=== PATIENT | male | born 1985 | race Caucasian/White ===

== ENCOUNTER 2017-10-20 16:21 | Emergency (ER) | payer BC ==
[2017-10-20 16:26] VITALS: BP 133/88
[2017-10-20] MEDS ORDERED: KETOROLAC TROMETHAMINE 60 MG/2 ML SDV IM ONE (16:35)
[2017-10-20] MEDS ORDERED: LIDOCAINE 5% (700 MG) TRANSDERMAL ADH..PATCH TP ONE (16:35)
[2017-10-20 17:32] LABS: ABSOLUTE BASOPHILS # (AUTO) 0.1 10^3/uL (0.0-0.2); ABSOLUTE EOSINOPHILS # (AUTO) 0.2 10^3/uL (0.0-0.6); ABSOLUTE LYMPHOCYTES (AUTO) 2.6 10^3/uL (0.5-4.7); ABSOLUTE MONOCYTES (AUTO) 0.5 10^3/uL (0.1-1.4); ABSOLUTE NEUT (AUTO) 6.7 10^3/uL (1.7-8.2); BASOPHILS % (AUTO) 1.2 % (0-2); EOSINOPHILS % (AUTO) 1.5 % (0-6); HEMATOCRIT 45.8 % (37.9-51.0); LYMPHOCYTES % (AUTO) 25.7 % (13-45); MEAN CORPUSCULAR HGB CONC 34.9 g/dL (32.0-36.0); MEAN CORPUSCULAR VOLUME 89 fl (80-97); MONOCYTES % (AUTO) 5.4 % (3-13); PLATELET COUNT 255 10^3/uL (150-450); RED BLOOD COUNT 5.16 10^6/uL (4.35-5.55); RED CELL DISTRIBUTION WIDTH 13.2 % (11.5-14.0); SEGMENTED NEUTROPHILS % (AUTO) 66.2 % (42-78); TOTAL CELLS COUNTED % (AUTO) 100 %; WHITE BLOOD COUNT 10.1 10^3/uL (4.0-10.5)
[2017-10-20 18:02] LABS: APPEARANCE,URINE CLOUDY; BILIRUBIN,URINE NEGATIVE (NEGATIVE); COLOR,URINE AMBER; GLUCOSE, URINE NEGATIVE (NEGATIVE); KETONES,URINE NEGATIVE (NEGATIVE); LEUKOCYTE ESTERASE,URINE NEGATIVE (NEGATIVE); NITRITE,URINE NEGATIVE (NEGATIVE); PROTEIN,URINE 100 mg/dL (NEGATIVE); URINE SPECIFIC GRAVITY 1.026; UROBILINOGEN,URINE NEGATIVE mg/dL (<2.0)
[2017-10-20 18:20] LABS: ANION GAP 14 (5-19); BLOOD UREA NITROGEN 11 mg/dL (7-20); CALCIUM 9.4 mg/dL (8.4-10.2); CARBON DIOXIDE 24 mmol/L (22-30); CHLORIDE 103 mmol/L (98-107); GLUCOSE 109 mg/dL (75-110); POTASSIUM 3.9 mmol/L (3.6-5.0); SODIUM 140.5 mmol/L (137-145)
--- NOTE | 2017-10-20 18:21 | RADIOLOGY REPORT (SQ) ---
EXAM DESCRIPTION: CT LTD RENAL STONE PROTOCOL ON COMPLETED DATE/TIME: 10/20/2017 6:10 pm REASON FOR STUDY: right flank pain COMPARISON: None. TECHNIQUE: CT scan of the abdomen and pelvis performed without intravenous or oral contrast. Images reviewed with lung, soft tissue, and bone windows. Reconstructed coronal and sagittal MPR images revi ewed. All images stored on PACS. All CT scanners at this facility use dose modulation, iterative reconstruction, and/or weight based d osing when appropriate to reduce radiation dose to as low as reasonably achievable (ALARA). [facility]: Dose Right [facility]: CareDose [facility]: Dose Right [facility]: Teradose 4D [facility]: [employer] RADIATION DOSE: mGy. LIMITATIONS: None. FINDINGS: LOWER CHEST: No significant findings. No nodules or infiltrates. NON-CONTRASTED LIVER, SPLEEN, ADRENALS: Evaluation limited by lack of IV contrast. No identified sign ificant masses. PANCREAS: No masses. No peripancreatic inflammatory changes. GALLBLADDER: No identified stones by CT criteria. No inflammatory changes to suggest cholecystitis. RIGHT KIDNEY AND URETER: No suspicious masses. Assessment limited by lack of IV contrast. A 3.5 mm in diameter obstructing calculus is identified at the level of the uteropelvic junction. There is h ydronephrosis of the right kidney. LEFT KIDNEY AND URETER: No suspicious masses. Assessment limited by lack of IV contrast. No signifi cant calcifications. No hydronephrosis or hydroureter. AORTA AND RETROPERITONEUM: No aneurysm. No retroperitoneal masses or adenopathy. BOWEL AND PERITONEAL CAVITY: No obvious masses or inflammatory changes. No free fluid. APPENDIX: Normal. PELVIS, BLADDER, AND ABDOMINAL WALL:No abnormal masses. No free fluid. Bladder normal. BONES: No significant findings. OTHER: No other significant finding. IMPRESSION: Obstructing 3.5 mm in diameter calculus at the level of the uteropelvic junction on the right. No other renal calculi are identified. There is hydronephrosis of the right kidney COMMENT: Quality ID # [id number]: Final reports with documentation of one or more dose reduction techniques (e.g., Automated exposure control, adjustment of the mA and/or kV according to patient size, use of iterative reconstruction technique) TECHNICAL DOCUMENTATION: JOB ID: [id number] [employer]- All Rights Reserved Reading location - IP/workstation name: [email or web address]
[2017-10-20] MEDS ORDERED: ONDANSETRON ODT 4 MG TAB (6 TAB/ER DISP) PO PRN (18:32)
[2017-10-20] MEDS ORDERED: TAMSULOSIN HCL 0.4 MG CAP.SR.24H PO ONE (18:33)
[2017-10-20] MEDS ORDERED: OXYCODONE-ACETAMINOPHEN 5-325 MG TABLET PO ONE (18:33)
--- NOTE | 2017-10-20 18:49 | ER Document Report ---
ED General - General Chief Complaint: Flank Pain Stated Complaint: BACK PAIN Time Seen by Provider: 10/20/17 16:31 TRAVEL OUTSIDE OF THE U.[place]. IN LAST 30 DAYS: No - HPI Patient complains to provider of: Right flank pain Notes: Patient is really was having some achy right flank pain now sharpshooting quick onset. Patient states slightly nauseous. Denies any fever chills vomiting diarrhea. Patient denies any trauma denies history of kidney stones resting company for my evaluation. - Related Data Allergies/Adverse Reactions: No Known Allergies Allergy (Verified 10/20/17 16:24) Past Medical History - Social History Smoking Status: Current Every Day Smoker Chew tobacco use (# tins/day): No Frequency of alcohol use: None Drug Abuse: None Family History: Reviewed & Not Pertinent Patient has suicidal ideation: No Patient has homicidal ideation: No Renal/ Medical History: Denies: Hx Peritoneal Dialysis - Immunizations Immunizations up to date: Yes Hx Diphtheria, Pertussis, Tetanus Vaccination: Yes Review of Systems - Review of Systems Constitutional: No symptoms reported EENT: No symptoms reported Cardiovascular: No symptoms reported Respiratory: No symptoms reported Gastrointestinal: No symptoms reported Genitourinary: Flank pain Male Genitourinary: No symptoms reported Musculoskeletal: No symptoms reported Skin: No symptoms reported Hematologic/Lymphatic: No symptoms reported Neurological/Psychological: No symptoms reported -: Yes All other systems reviewed and negative Physical Exam - Vital signs Vitals: Temp Pulse Resp BP Pulse Ox 97.7 F 56 L 20 133/88 H 100 10/20/17 16:25 10/20/17 16:25 10/20/17 16:25 10/20/17 16:25 10/20/17 16:25 Interpretation: Normal - General General appearance: Appears well, Alert - HEENT Head: Normocephalic, Atraumatic Eyes: Normal Pupils: PERRL - Respiratory Respiratory status: No respiratory distress Chest status: Nontender Breath sounds: Normal Chest palpation: Normal - Cardiovascular Rhythm: Regular Heart sounds: Normal auscultation Murmur: No - Abdominal Inspection: Normal Distension: No distension Bowel sounds: Normal Tenderness: Nontender Organomegaly: No organomegaly - Back Back: Normal, Nontender, CVA tenderness - Minimal right CVA tenderness - Extremities General upper extremity: Normal inspection, Nontender, Normal color, Normal ROM , Normal temperature General lower extremity: Normal inspection, Nontender, Normal color, Normal ROM , Normal temperature, Normal weight bearing. No: Rossy's sign - Neurological Neuro grossly intact: Yes Cognition: Normal Orientation: AAOx4 [place] Coma Scale Eye Opening: Spontaneous [place] Coma Scale Verbal: Oriented [place] Coma Scale Motor: Obeys Commands [place] Coma Scale Total: 15 Speech: Normal Motor strength normal: LUE, RUE, LLE, RLE Sensory: Normal - Psychological Associated symptoms: Normal affect, Normal mood - Skin Skin Temperature: Warm Skin Moisture: Dry Skin Color: Normal Course - Re-evaluation Re-evalutation: 10/20/17 20:42 After stations hematuria versus consistent with a kidney stone seen on the CAT scan. Patient was given pain control anti-inflammatory medication and nausea medication Flomax patient was encouraged to drink plenty fluids. No signs of urosepsis or any other significant pathology at this time renal function is normal. Patient will be discharged home - Vital Signs Vital signs: Temp Pulse Resp BP Pulse Ox 97.7 F 56 L 20 133/88 H 100 10/20/17 16:25 10/20/17 16:25 10/20/17 16:25 10/20/17 16:25 10/20/17 16:25 - Laboratory Result Diagrams: 10/20/17 17:10 10/20/17 17:10 Laboratory results interpreted by me: 10/20/17 17:10 Urine Protein 100 H Urine Blood LARGE H Discharge - Discharge Clinical Impression: Kidney stone on right side Condition: Good Disposition: HOME, SELF-CARE Instructions: Flomax ([facility]), Kidney Stone ([facility]), Oral Narcotic Medication ([facility]) Additional Instructions: Your CAT scan today shows a 3.5-4 mm kidney stone on the right side more likely this is why you are having pain. Kidney stones can cause nausea or vomiting. Please take the Zofran as prescribed for any nausea or vomiting she may have. Please take the Tylenol and Motrin together for regular pain. We recommend the morphine for severe pain. Return to the ER if you have a fever temperature greater than 101. Please make sure drinking plenty water to stay hydrated. Flomax will help make the tubes in the urinary tract bigger hopefully decreasing the amount time it takes to pass a kidney stone. Flomax is not needed for passage of the kidney stone. Prescriptions: Ibuprofen [Motrin 600 mg Tablet] 600 mg PO Q8HP PRN #21 tablet PRN Reason: Morphine Sulfate [Morphine Ir 15 Mg Tablet] 15 mg PO TID #18 tablet Ondansetron [Zofran Odt] 4 mg PO Q6 PRN #30 tab.rapdis PRN Reason: For Nausea/Vomiting Tamsulosin HCl [Flomax 0.4 mg Cap.sr] 0.4 mg PO DAILY #7 cap.sr.24h Forms: Return to Work
== END 2017-10-20 18:41 | disposition home or self-care (01) ==
LOC: ER 16:21
DX: N13.2 Hydronephrosis with renal and ureteral calculous obstruction (principal); R10.9 Unspecified abdominal pain; R11.0 Nausea; F17.200 Nicotine dependence, unspecified, uncomplicated
CPT/HCPCS: 99284; 96372; 36415; 85025; 80048; 81001; 76380; J1885

== ENCOUNTER 2017-12-25 19:58 | Emergency (ER) | payer BC ==
[2017-12-25 21:40] LABS: ABSOLUTE BASOPHILS # (AUTO) 0.1 10^3/uL (0.0-0.2); ABSOLUTE EOSINOPHILS # (AUTO) 0.1 10^3/uL (0.0-0.6); ABSOLUTE LYMPHOCYTES (AUTO) 1.9 10^3/uL (0.5-4.7); ABSOLUTE MONOCYTES (AUTO) 0.7 10^3/uL (0.1-1.4); ABSOLUTE NEUT (AUTO) 10.5 10^3/uL (1.7-8.2); BASOPHILS % (AUTO) 0.5 % (0-2); EOSINOPHILS % (AUTO) 0.8 % (0-6); HEMATOCRIT 46.2 % (37.9-51.0); LYMPHOCYTES % (AUTO) 14.7 % (13-45); MEAN CORPUSCULAR HEMOGLOBIN 30.6 pg (27.0-33.4); MEAN CORPUSCULAR HGB CONC 34.6 g/dL (32.0-36.0); MEAN CORPUSCULAR VOLUME 88 fl (80-97); PLATELET COUNT 261 10^3/uL (150-450); RED BLOOD COUNT 5.23 10^6/uL (4.35-5.55); RED CELL DISTRIBUTION WIDTH 13.2 % (11.5-14.0); TOTAL CELLS COUNTED % (AUTO) 100 %; WHITE BLOOD COUNT 13.3 10^3/uL (4.0-10.5)
[2017-12-25 21:57] LABS: ALANINE AMINOTRANSFERASE 55 U/L (21-72); ALBUMIN 4.3 g/dL (3.5-5.0); ALKALINE PHOSPHATASE 76 U/L (38-126); ANION GAP 13 (5-19); ASPARTATE AMINO TRANSFERASE 33 U/L (17-59); BILIRUBIN,DIRECT 0.2 mg/dL (0.0-0.4); BILIRUBIN,TOTAL 0.5 mg/dL (0.2-1.3); BLOOD UREA NITROGEN 12 mg/dL (7-20); CALCIUM 9.3 mg/dL (8.4-10.2); CARBON DIOXIDE 25 mmol/L (22-30); CHLORIDE 101 mmol/L (98-107); GLUCOSE 128 mg/dL (75-110); SODIUM 138.6 mmol/L (137-145); TOTAL PROTEIN 7.1 g/dL (6.3-8.2)
[2017-12-25] MEDS ORDERED: NORMAL SALINE 1000 ML 1,000 ML IV ONE (22:03)
[2017-12-25] MEDS ORDERED: KETOROLAC TROMETHAMINE INJ/PF 30 MG/1 ML SDV IV ONE (22:03)
--- NOTE | 2017-12-25 22:06 | ER Document Report ---
ED General - General Chief Complaint: Flank Pain Stated Complaint: FLANK PAIN Time Seen by Provider: 12/25/17 21:57 Notes: Patient is a pleasant 32-year-old female presents with complaint of right back pain. He has previous history of kidney stones says feels just like previous kidney stones. No pain into the flank or inguinal area. No pain in the testicle region. Says pain is made somewhat worse with movement. He denies any recent pulls or injuries to his back. He has passed his previous kidney stones on his own without needing any type of therapy such as lithotripsy or ureteral stenting. Some nausea. No vomiting. No fevers. No anterior abdominal pain. No other complaints at this time. TRAVEL OUTSIDE OF THE U.S. IN LAST 30 DAYS: No - Related Data Allergies/Adverse Reactions: azithromycin Allergy (Verified 12/25/17 20:02) Past Medical History - Social History Smoking Status: Unknown if Ever Smoked Frequency of alcohol use: None Drug Abuse: None Family History: Reviewed & Not Pertinent Renal/ Medical History: Denies: Hx Peritoneal Dialysis - Immunizations Immunizations up to date: Yes Hx Diphtheria, Pertussis, Tetanus Vaccination: Yes Review of Systems - Review of Systems Notes: My Normal Review Basic REVIEW OF SYSTEMS: CONSTITUTIONAL : Denies fever, chills, or sweats. Denies recent illness. CARDIOVASCULAR: Denies chest pain. RESPIRATORY: Denies cough, cold, or chest congestion. Denies shortness of breath, difficulty breathing, or wheezing. GASTROINTESTINAL: Denies abdominal pain. Some nausea GENITOURINARY: Denies difficulty urinating, painful urination, burning, frequency, or blood in urine. MUSCULOSKELETAL: Right-sided back pain SKIN: Denies rash or skin lesions. NEUROLOGICAL: Denies sensory or motor loss. ALL OTHER SYSTEMS REVIEWED AND NEGATIVE. Physical Exam - Vital signs Vitals: Temp Pulse Resp BP Pulse Ox 97.7 F 79 20 149/92 H 99 12/25/17 20:13 12/25/17 20:13 12/25/17 20:13 12/25/17 20:13 12/25/17 20:13 - Notes Notes: General Appearance: Well nourished, alert, cooperative, no acute distress, mild to moderate obvious discomfort. Vitals: reviewed, See vital signs table. Head: no swelling or tenderness to the head Eyes: PERRL, EOMI, Conjuctiva clear Mouth: No decreasd moisture Lungs: No wheezing, No rales, No rhonci, No accessory muscle use, good air exchange bilaterally. Heart: Normal rate, Regular rythm, No murmur, no rub Abdomen: Normal BS, soft, No rigidity, No abdominal tenderness, No guarding, no rebound, no abdominal masses, no organomegaly Back: No reproducible pain palpation of right lower back. Extremities: strength 5/5 in all extremities, good pulses in all extremities, no swelling or tenderness in the extremities, no edema. Skin: warm, dry, appropriate color, no rash Neuro: speech clear, oriented x 3, normal affect, responds appropriately to questions. Course - Re-evaluation Re-evalutation: 12/26/17 00:11 12/26/17 00:13 Patient's pain is well controlled. He looks well. I will give him 1 dose of Toradol before he leaves just so he has been controlled throughout the night. I have written prescription for Toradol since it works well for him. Give him Zofran for nausea. Is not any vomiting since been here. He is afebrile. He looks well. Urine shows no evidence of infection. Ultrasound shows mild hydronephrosis in the right side with hematuria and his urinalysis consistent with kidney stone. At this time I feel he safe to be discharged home. I will refer him to urology. Informed him to call urology if is not passed a stone of 3 days. I strongly encouraged him to return to the ER immediately if he has intractable pain, intractable vomiting, fevers, or feels unwell. Patient says Flomax has helped him in the past passing stones and therefore I did prescribe him Flomax. Patient agrees with plan will be discharged home. Dictation of this chart was performed using voice recognition software; therefore, there may be some unintended grammatical errors. - Vital Signs Vital signs: Temp Pulse Resp BP Pulse Ox 97.7 F 79 20 149/92 H 99 12/25/17 20:13 12/25/17 20:13 12/25/17 20:13 12/25/17 20:13 12/25/17 20:13 - Laboratory Result Diagrams: 12/25/17 21:28 12/25/17 21:28 Laboratory results interpreted by me: 12/25/17 12/25/17 12/25/17 21:28 21:28 21:28 WBC 13.3 H Seg Neutrophils % 79.0 H Absolute Neutrophils 10.5 H Glucose 128 H Urine Protein 30 H Urine Blood LARGE H Discharge - Discharge Clinical Impression: Ureteral colic Condition: Good Disposition: HOME, SELF-CARE Additional Instructions: Please take the pain medicine and nausea medicine as prescribed. please follow up with the urologist, Dr. Arevalo, if you are still having any recurrence of pain after [address] you call Dr. Arevalo's office you can request to be seen in his [place] office. please return to the ER immediately if you develop fevers, intractable pain, fevers, intractable vomiting, or feel unwell. Do not take other NSAID medicaitons such as Aspirin, Motrin, Ibuprofen, Aleve, or Advil when taking Toradol. It is okay to take Tylenol. Prescriptions: Ketorolac Tromethamine [Toradol 10 mg Tablet] 10 mg PO Q8HP PRN #15 tablet PRN Reason: Ondansetron [Zofran Odt 4 mg Tablet] 1 tab PO Q4H PRN #15 tab.rapdis PRN Reason: For Nausea/Vomiting Tamsulosin HCl [Flomax 0.4 mg Cap.sr] 0.4 mg PO DAILY #7 cap.sr.24h Forms: Return to Work Referrals: GAYLE AREVALO MD [NO LOCAL MD] - 12/29/17
[2017-12-25] MEDS ORDERED: KETOROLAC TROMETHAMINE INJ/PF 30 MG/1 ML SDV ONE (22:09)
[2017-12-25 22:14] LABS: APPEARANCE,URINE SLIGHTLY-CLOUDY; BILIRUBIN,URINE NEGATIVE (NEGATIVE); CALCIUM OXALATE CRYSTALS,URINE MODERATE /HPF; COLOR,URINE YELLOW; GLUCOSE, URINE NEGATIVE (NEGATIVE); KETONES,URINE NEGATIVE (NEGATIVE); LEUKOCYTE ESTERASE,URINE NEGATIVE (NEGATIVE); NITRITE,URINE NEGATIVE (NEGATIVE); PROTEIN,URINE 30 mg/dL (NEGATIVE); URINE SPECIFIC GRAVITY 1.026; UROBILINOGEN,URINE NEGATIVE mg/dL (<2.0)
--- NOTE | 2017-12-25 23:52 | RADIOLOGY REPORT (SQ) ---
US RETROPERITONEUM HISTORY: Right back pain, hx of kidney stones. COMPARISON: None. FINDINGS: The right kidney measures 11.9 cm in length, which is normal size. The cortex has normal thickness and echogenicity. There is a 9 mm echogenic focus which may represent a small stone. Query mild dilation of the renal pelvis. The left kidney measures 9.8 cm in length, which is normal size. The cortex has normal thickness and echogenicity. There is no left-sided kidney stone, mass or hydronephrosis. Visualized urinary bladder is unremarkable. IMPRESSION: Possible 9 mm right renal stone. Query mild dilation of the right renal pelvis.
[2017-12-26] MEDS ORDERED: KETOROLAC TROMETHAMINE INJ/PF 30 MG/1 ML SDV IV ONE (00:08)
[2017-12-26] MEDS ORDERED: ONDANSETRON ODT 4 MG TAB (6 TAB/ER DISP) PO PRN (00:09)
[2017-12-26] MEDS ORDERED: TAMSULOSIN HCL 0.4 MG CAP.SR.24H PO ONE (00:09)
[2017-12-26 00:35] VITALS: BP 131/87
== END 2017-12-26 00:26 | disposition home or self-care (01) ==
LOC: ER 19:58
DX: N23 Unspecified renal colic (principal); N13.30 Unspecified hydronephrosis; R31.9 Hematuria, unspecified; R11.0 Nausea; M54.5 Low back pain; Z88.1 Allergy status to other antibiotic agents; Z87.442 Personal history of urinary calculi
CPT/HCPCS: 96376; 99284; 96361; 96374; 36415; 83690; 85025; 80053; 81001; 76770; J1885 ×2; J7030

== ENCOUNTER 2018-07-03 13:16 | Emergency (ER) | payer BC ==
[2018-07-03] MEDS ORDERED: KETOROLAC TROMETHAMINE 60 MG/2 ML SDV IM ONE (13:42)
[2018-07-03] MEDS ORDERED: ONDANSETRON 4 MG TAB.RAPDIS PO ONE ×2 (13:42→17:17)
--- NOTE | 2018-07-03 13:42 | ER Document Report ---
ED Medical Screen (RME) - General Chief Complaint: Low Back Pain Stated Complaint: NAUSEA Time Seen by Provider: 07/03/18 13:39 Mode of Arrival: Ambulatory Information source: Patient Notes: 32-year-old male presented to ED for complaint of right flank pain with urine dark for the last 4 hours. He states he is also had a headache and nausea. He states he had a history of a kidney stone x1 and but he passed it okay on his own he did not have to have surgery. He is alert oriented respirations regular and unlabored speaking in full sentences. He does smoke a pack a day and drinks about once a month. He lives with his family and works for the [employer]. Is in no acute distress at this moment. I have greeted and performed a rapid initial assessment of this patient. A comp rehensive ED assessment and evaluation of the patient, analysis of test results and completion of medical decision making process will be conducted by an additional ED providers. TRAVEL OUTSIDE OF THE [place] IN LAST 30 DAYS: No - Related Data Allergies/Adverse Reactions: azithromycin Allergy (Verified 07/03/18 13:19) Past Medical History - Social History Chew tobacco use (# tins/day): No Frequency of alcohol use: Occasional Drug Abuse: None Renal/ Medical History: Reports: Hx Kidney Stones. Denies: Hx Peritoneal Dialysis - Immunizations Immunizations up to date: Yes Hx Diphtheria, Pertussis, Tetanus Vaccination: Yes Physical Exam - Vital signs Vitals: Temp Pulse Resp BP Pulse Ox 97.3 F 58 L 16 153/108 H 99 07/03/18 13:20 07/03/18 13:20 07/03/18 13:20 07/03/18 13:20 07/03/18 13:20 Course - Vital Signs Vital signs: Temp Pulse Resp BP Pulse Ox 97.3 F 58 L 16 118/90 H 99 07/03/18 13:20 07/03/18 13:20 07/03/18 13:20 07/03/18 13:40 07/03/18 13:20
[2018-07-03 14:53] LABS: ABSOLUTE EOSINOPHILS # (AUTO) 0.1 10^3/uL (0.0-0.6); ABSOLUTE LYMPHOCYTES (AUTO) 1.8 10^3/uL (0.5-4.7); ABSOLUTE MONOCYTES (AUTO) 0.6 10^3/uL (0.1-1.4); ABSOLUTE NEUT (AUTO) 7.1 10^3/uL (1.7-8.2); BASOPHILS % (AUTO) 0.4 % (0-2); EOSINOPHILS % (AUTO) 1.4 % (0-6); HEMATOCRIT 45.1 % (37.9-51.0); HEMOGLOBIN 15.7 g/dL (13.5-17.0); LYMPHOCYTES % (AUTO) 18.6 % (13-45); MEAN CORPUSCULAR HEMOGLOBIN 30.7 pg (27.0-33.4); MEAN CORPUSCULAR HGB CONC 34.8 g/dL (32.0-36.0); MEAN CORPUSCULAR VOLUME 88 fl (80-97); MONOCYTES % (AUTO) 6.2 % (3-13); PLATELET COUNT 242 10^3/uL (150-450); SEGMENTED NEUTROPHILS % (AUTO) 73.4 % (42-78); TOTAL CELLS COUNTED % (AUTO) 100 %; WHITE BLOOD COUNT 9.7 10^3/uL (4.0-10.5)
[2018-07-03 14:58] LABS: APPEARANCE,URINE SLIGHTLY-CLOUDY; BILIRUBIN,URINE NEGATIVE (NEGATIVE); COLOR,URINE YELLOW; GLUCOSE, URINE NEGATIVE (NEGATIVE); KETONES,URINE NEGATIVE (NEGATIVE); LEUKOCYTE ESTERASE,URINE NEGATIVE (NEGATIVE); NITRITE,URINE NEGATIVE (NEGATIVE); PROTEIN,URINE NEGATIVE (NEGATIVE); URINE SPECIFIC GRAVITY 1.015; UROBILINOGEN,URINE NEGATIVE mg/dL (<2.0)
[2018-07-03 15:11] LABS: ALANINE AMINOTRANSFERASE 63 U/L (21-72); ALBUMIN 4.4 g/dL (3.5-5.0); ALKALINE PHOSPHATASE 80 U/L (38-126); ANION GAP 12 (5-19); ASPARTATE AMINO TRANSFERASE 32 U/L (17-59); BILIRUBIN,DIRECT 0.2 mg/dL (0.0-0.4); BILIRUBIN,TOTAL 0.6 mg/dL (0.2-1.3); BLOOD UREA NITROGEN 11 mg/dL (7-20); CALCIUM 9.5 mg/dL (8.4-10.2); CARBON DIOXIDE 26 mmol/L (22-30); CHLORIDE 100 mmol/L (98-107); GLUCOSE 98 mg/dL (75-110); POTASSIUM 3.8 mmol/L (3.6-5.0); SODIUM 137.5 mmol/L (137-145); TOTAL PROTEIN 7.2 g/dL (6.3-8.2)
--- NOTE | 2018-07-03 17:07 | RADIOLOGY REPORT (SQ) ---
EXAM DESCRIPTION: U/S RETROPERITON (RENAL/AORTA) COMPLETED DATE/TIME: 07/03/2018 4:55 pm REASON FOR STUDY: right flank pain COMPARISON: CT stone survey 10/20/2017 Bilateral renal ultrasound 12/25/2017 TECHNIQUE: Dynamic and static grayscale images acquired of the kidneys and bladder and recorded on P ACS. Additional selected color Doppler and spectral images recorded. LIMITATIONS: Large patient FINDINGS: RIGHT KIDNEY: Right kidney is 11.6 cm in size. There is a prominent right renal pelvis. No right-sided dilated calices or gross intrarenal stones are identified. No right renal cysts or ma sses. LEFT KIDNEY: Normal size, 11.8 cm in length. Normal echogenicity. No solid or suspicious masses. No hydronephrosis. No calcifications. BLADDER: No masses. OTHER FINDINGS: No other significant finding. IMPRESSION: Prominent right renal pelvis without dilated calices. Patient had a stone at the [facility] on CT 10/20/2017. Recurrent stone at the right ureteropelvic junction could be present. No left-sided hydronephrosis Urinary bladder unremarkable TECHNICAL DOCUMENTATION: JOB ID: [id number]- All Rights Reserved Reading location - IP/workstation name: [email or web address]
[2018-07-03 17:20] VITALS: BP 116/81
--- NOTE | 2018-07-03 17:22 | ER Document Report ---
ED General - General Chief Complaint: Low Back Pain Stated Complaint: NAUSEA Time Seen by Provider: 07/03/18 13:39 Mode of Arrival: Ambulatory Information source: Patient TRAVEL OUTSIDE OF THE [place] IN LAST 30 DAYS: No - HPI Patient complains to provider of: Right low back/flank pain with nausea Onset: This morning Onset/Duration: Sudden Quality of pain: Sharp Severity: Severe Pain Level: 4 Associated symptoms: Nausea. denies: Chills, Diarrhea, Fever, Vomiting Exacerbated by: Denies Relieved by: Denies Similar symptoms previously: No Recently seen / treated by doctor: No Notes: 32-year-old male coming in today with what felt like kidney stone pain. Started in the right low back and radiated around the right flank to the right lower abdomen. Some nausea present. No vomiting. No diarrhea. No fevers or shaking chills. No dysuria - Related Data Allergies/Adverse Reactions: azithromycin Allergy (Verified 07/03/18 13:19) Past Medical History - General Information source: Patient - Social History Smoking Status: Current Every Day Smoker Chew tobacco use (# tins/day): No Frequency of alcohol use: Occasional Drug Abuse: None Family History: Reviewed & Not Pertinent Patient has suicidal ideation: No Patient has homicidal ideation: No Renal/ Medical History: Reports: Hx Kidney Stones. Denies: Hx Peritoneal Dialysis - Immunizations Immunizations up to date: Yes Hx Diphtheria, Pertussis, Tetanus Vaccination: Yes Review of Systems - Review of Systems Notes: Constitutional: No fevers. No chills. EENT: No eye redness. No eye pain. No ear pain. No sore throat. Cardiovascular: No chest pain. No palpitations. Respiratory: No cough. No shortness of breath. No respiratory distress. Gastrointestinal: No abdominal pain. No nausea, vomiting, or diarrhea. Genitourinary: Atraumatic. No lesions. No pain. No discharge. Musculoskeletal: Atraumatic. No swelling. No deformities. Skin: No rash or lesions. Lymphatic: No swollen lymph nodes. Neurologic: No headache. No syncope. Psychiatric: No suicidal or homicidal ideation. Physical Exam - Vital signs Vitals: Temp Pulse Resp BP Pulse Ox 97.3 F 58 L 16 153/108 H 99 07/03/18 13:20 07/03/18 13:20 07/03/18 13:20 07/03/18 13:20 07/03/18 13:20 Course - Re-evaluation Re-evalutation: 07/03/18 17:19 UA shows a lot of red blood cells and no sign of infection. Renal ultrasound done to prevent excessive radiation exposure. There may be some right renal pelvis dilatation. No stone is seen. BUN and creatinine are normal. Will treat like a stone and have him follow-up with [facility] - Vital Signs Vital signs: Temp Pulse Resp BP Pulse Ox 97.3 F 58 L 16 118/90 H 99 07/03/18 13:20 07/03/18 13:20 07/03/18 13:20 07/03/18 13:40 07/03/18 13:20 - Laboratory Result Diagrams: 07/03/18 14:27 07/03/18 14:27 Laboratory results interpreted by me: 07/03/18 14:27 Urine Blood LARGE H Discharge - Discharge Clinical Impression: Kidney stone on right side Condition: Good Disposition: HOME, SELF-CARE Instructions: Oral Narcotic Medication ([facility]), Ice Packs ([facility]), Warm Packs ([facility]), Kidney Stone ([facility]) Additional Instructions: Follow-up at [facility] as directed. Take pain medicine and nausea medicine as needed. If your symptoms get worse or you have uncontrollable vomiting you are always welcome to return to the ED to be rechecked. Prescriptions: Hydrocodone/Acetaminophen [[place] 5-325 mg Tablet] 1 tab PO Q6HP PRN #12 tablet PRN Reason: Ondansetron [Zofran Odt 4 mg Tablet] 1 - 2 tab PO Q4H PRN #15 tab.rapdis PRN Reason: For Nausea/Vomiting Referrals: [facility] [Provider Group] - Follow up as needed
== END 2018-07-03 17:26 | disposition home or self-care (01) ==
LOC: ER 13:16
DX: N20.0 Calculus of kidney (principal); M54.5 Low back pain; R10.9 Unspecified abdominal pain; R11.0 Nausea; R10.30 Lower abdominal pain, unspecified; Z88.1 Allergy status to other antibiotic agents; F17.200 Nicotine dependence, unspecified, uncomplicated
CPT/HCPCS: 99284; 36415; 85025; 80053; 81001; 76770; J1885; S0119